=== PATIENT | female | born 1950 | race Caucasian/White ===

== ENCOUNTER → 2016-08-08 | Outpatient (CLI) | payer OTHER | LOC: FIMAGING 12:40 | DX: Z12.31 Encounter for screening mammogram for malignant neoplasm of breast (principal) | CPT/HCPCS: G0202 ==

== ENCOUNTER → 2018-02-13 | Outpatient (CLI) | payer OTHER | LOC: FIMAGING 12:40 | PROVIDERS: ATTEND Family Medicine | DX: Z12.31 Encounter for screening mammogram for malignant neoplasm of breast (principal) ==

== ENCOUNTER 2018-06-29 09:54 | Emergency (ER) | payer OTHER ==
--- NOTE | 2018-06-29 10:08 | EDPHY ---
Addendum entered and electronically signed by Jessa Stewart PAC 06/29/18 11:39: Addendum: Correction with ultrasound read. 10 mm endometrium not 10 cm. Original Note: H & P Stated Complaint: vaginal bleeding Time Seen by Provider: 06/29/18 10:04 HPI/ROS: HPI: This is a 67-year-old female who presents with Chief Complaint: Vaginal bleeding Location: Vagina Quality: Bleeding Duration: 3 days Signs and Symptoms: no fever, no nausea, no vomiting, no hematemesis, no blood in stool, no abdominal bloating, no diarrhea, no back pain, no urinary symptoms , no vaginal discharge, no indigestion, no chest pain, no shortness of breath Timing: Acute, worsening Severity: Moderate Context: Patient is postmenopausal, presents with 3 day history of vaginal bleeding. At 1st she was just having some spotting but since yesterday she reports bright red blood and she is changing her tampon approximately every 2 hr since yesterday. Her last pelvic exam and Pap smear was in 2016 and unremarkable per primary care provider. No recent sexual intercourse or concern for vaginal trauma. No history of vaginal atrophy. Patient denies any chest pain, shortness of breath, dizziness. Not on any blood thinners. Does not have an OBGYN and follows with PCP. Takes hormone replacement therapy. Modifying Factors: None Comment: ROS: A comprehensive 10 system review of systems is otherwise negative aside from elements mentioned in the history of present illness. MEDICAL/SURGICAL/SOCIAL HISTORY: Medical history: Hypothyroidism Surgical history: both shoulder repaired (by Helio); tonsillectomy and adenoidectomy; R knee surgery Social history: Retired, , nonsmoker. Family history noncontributory. CONSTITUTIONAL: Extremely polite and cooperative elderly white female who appears younger than stated age, awake and alert, no obvious distress HEENT: Atraumatic and normocephalic, PERRL, EOMI. Nares patent; no rhinorrhea; no nasal mucosal edema. Tympanic membranes clear. Oropharynx clear, no exudate and moist pink mucosa. Airway patent. No lymphadenopathy. No meningismus. Cardiovascular: Normal S1/S2, regular rate, regular rhythm, without murmur rub or gallop. PULMONARY/CHEST: Symmetrical and nontender. Clear to auscultation bilaterally. Good air movement. No accessory muscle usage. ABDOMEN: Soft, nondistended, nontender, no rebound, no guarding, no peritoneal signs, no masses or organomegaly. No CVAT. EXTREMITIES: 2/2 pulses, strength 5/5, no deformities, no clubbing, no cyanosis or edema. NEUROLOGICAL: no focal neuro deficits. GCS 15. SKIN: Warm and dry, pallor, no erythema. no rash. Good capillary refill. Source: Patient Exam Limitations: No limitations - Personal History Current Tetanus/Diphtheria Vaccine: Yes Current Tetanus Diphtheria and Acellular Pertussis (TDAP): Yes - Medical/Surgical History Hx Asthma: No Hx Chronic Respiratory Disease: No Hx Diabetes: No Hx Cardiac Disease: No Hx Renal Disease: No Hx Cirrhosis: No Hx Alcoholism: No Hx HIV/AIDS: No Hx Splenectomy or Spleen Trauma: No Other PMH: both shoulder repaired (by Helio); tonsillectomy and adnoidectomy; hypothyroid, R knee surgery, - Social History Smoking Status: Never smoked Constitutional: Initial Vital Signs Temperature (C) 37.3 C 06/29/18 09:58 Heart Rate 78 06/29/18 09:58 Respiratory Rate 16 06/29/18 09:58 Blood Pressure 155/86 H 06/29/18 09:58 O2 Sat (%) 97 06/29/18 09:58 O2 Delivery Mode Room Air Allergies/Adverse Reactions: No Known Allergies Allergy (Verified 06/29/18 09:56) Home Medications: Medication Instructions Recorded ALPRAZolam [Xanax 1 MG (*)] 0.5 mg PO HS PRN 09/06/15 Cholecalciferol Vit D3 [Vitamin D3 2,000 units PO DAILY 09/06/15 2000 units] Estradiol [Minivelle] 1 each TD WESA@09 09/06/15 Multivitamins [Multivitamin (*)] 1 each PO DAILY 09/06/15 Progesterone, Micronized 100 mg PO DAILY 09/06/15 [Progesterone] Thyroid,Pork [Spearfish Thyroid] 45 mg PO DAILY 09/06/15 Acyclovir [Zovirax 200 mg (*)] 200 mg PO 5XD PRN 10/03/15 Biosil 06/29/18 Medical Decision Making - Diagnostics Imaging Results: Imaging Impressions Pelvic/Renal Ultrasound 06/29/18 10:10 Impression: 1. Endometrial thickening measuring up to 10 mm. Given the patient's heavy postmenopausal bleeding, hysteroscopy and biopsy is recommended to differentiate endometrial hyperplasia from dysplasia/neoplasia. 2. Nonvisualization of the ovaries, despite transabdominal and endovaginal protocols. Findings were discussed with Jessa Stewart PA-C at 11:16, on 06/29/2018. ED Course/Re-evaluation: Vital signs reviewed and show mildly elevated blood pressure. IV access, laboratory studies, pelvic ultrasound ordered 1055: Labs reviewed. No signs of leukocytosis/anemia/platelet dysfunction/TONI/ elevated LFTs/electrolyte imbalance/pancreatitis/coagulopathy. H&H stable. Takes hormone replacement therapy. 1106: Called by Radiology who advised that pelvic ultrasound shows 10 cm enlarged endometrium with vascularity but no free fluid. ED decision to consult OBGYN. Spoke with Dr. Appiah who will kindly see the patient in his office now. This patient was seen under the supervision of my secondary supervising physician. I evaluated care for this patient with attending. Discussed this patient with Dr. Verdin. Differential Diagnosis: Differential diagnosis includes but is not limited to atrophy, cancer, polyps, endometrial hyperplasia, leiomyomata, adenomyosis. - Data Points Laboratory Results: Laboratory Results 06/29/18 10:20 06/29/18 10:20 06/29/18 06/29/18 06/29/18 10:20 10:20 10:20 WBC 8.57 10^3/uL 10^3/uL (3.80-9.50) RBC 4.84 10^6/uL 10^6/uL (4.18-5.33) Hgb 15.8 g/dL g/dL (12.6-16.3) Hct 47.1 % H % (38.0-47.0) MCV 97.3 fL fL (81.5-99.8) MCH 32.6 pg pg (27.9-34.1) MCHC 33.5 g/dL g/dL (32.4-36.7) RDW 12.4 % % (11.5-15.2) Plt Count 326 10^3/uL 10^3/uL (150-400) MPV 9.5 fL fL (8.7-11.7) Neut % (Auto) 65.9 % % (39.3-74.2) Lymph % (Auto) 26.1 % % (15.0-45.0) [place] % (Auto) 5.8 % % (4.5-13.0) Eos % (Auto) 1.2 % % (0.6-7.6) Baso % (Auto) 0.6 % % (0.3-1.7) Nucleat RBC Rel Count 0.0 % % (0.0-0.2) Absolute Neuts (auto) 5.65 10^3/uL 10^3/uL (1.70-6.50) Absolute Lymphs (auto) 2.24 10^3/uL 10^3/uL (1.00-3.00) Absolute Monos (auto) 0.50 10^3/uL 10^3/uL (0.30-0.80) Absolute Eos (auto) 0.10 10^3/uL 10^3/uL (0.03-0.40) Absolute Basos (auto) 0.05 10^3/uL 10^3/uL (0.02-0.10) Absolute Nucleated RBC 0.00 10^3/uL 10^3/uL (0-0.01) Immature Gran % 0.4 % % (0.0-1.1) Immature Gran # 0.03 10^3/uL 10^3/uL (0.00-0.10) PT 12.5 SEC SEC (12.0-15.0) INR 0.97 (0.83-1.16) APTT 29.7 SEC SEC (23.0-38.0) Sodium 138 mEq/L mEq/L (135-145) Potassium 4.4 mEq/L mEq/L (3.5-5.2) Chloride 106 mEq/L mEq/L (97-110) Carbon Dioxide 24 mEq/l mEq/l (22-31) Anion Gap 8 mEq/L mEq/L (6-14) BUN 12 mg/dL mg/dL (7-23) Creatinine 0.8 mg/dL mg/dL (0.6-1.0) Estimated GFR > 60 Glucose 96 mg/dL mg/dL (70-100) Calcium 9.6 mg/dL mg/dL (8.5-10.4) Total Bilirubin 0.5 mg/dL mg/dL (0.1-1.4) Conjugated Bilirubin 0.2 mg/dL mg/dL (0.0-0.5) Unconjugated Bilirubin 0.3 mg/dL mg/dL (0.0-1.1) AST 20 IU/L IU/L (14-46) ALT 20 IU/L IU/L (9-52) Alkaline Phosphatase 74 IU/L IU/L (38-126) Total Protein 7.7 g/dL g/dL (6.3-8.2) Albumin 4.5 g/dL g/dL (3.5-5.0) Lipase 73 IU/L IU/L (23-300) Departure - Departure Disposition: Home, Routine, Self-Care Clinical Impression: Postmenopausal bleeding, Thickened endometrium Condition: Good Instructions: Dysfunctional Uterine Bleeding (ED) Additional Instructions: You're going to be discharged from the emergency room and you are to go to Dr. Appiah's office directly for further evaluation. Referrals: Latosha Peterson MD [Primary Care Provider] - As per Instructions Ricky pApiah MD [Medical Doctor] - As per Instructions
[2018-06-29 10:29] LABS: PLATELET COUNT 326 10^3/uL (150-400)
[2018-06-29 10:48] LABS: INR 0.97 (0.83-1.16); PROTIME(PATIENT) 12.5 SEC (12.0-15.0)
[2018-06-29 11:50] VITALS: BP 150/64
== END 2018-06-29 11:50 | disposition home or self-care (01) ==
DX: N95.0 Postmenopausal bleeding (principal); E03.9 Hypothyroidism, unspecified; R93.89 Abnormal findings on diagnostic imaging of other specified body structures